=== PATIENT | female | born 1940 | race Caucasian/White ===

== ENCOUNTER 2016-11-18 10:38 | Inpatient (IN) | payer MEDICARE, BC ==
[2016-11-18] VITALS (8 sets, daily range): BP systolic 74–145; BP diastolic 49–74; PULSE 85–165; RESP 18–20; TEMP 97.5–98.4; O2SAT 94–100
[~2016-11-18 10:38] MED LIST: ATEN-102 PO
[2016-11-18] MEDS ORDERED: OXYC1TAB36 PO (10:52)
[2016-11-18] MEDS ORDERED: SODIUM CHLOR 0.9% 1000 ML INJ 1,000 ML IV ONE ×2 (11:15→13:45)
[2016-11-18] MEDS ORDERED: DILTIAZEM HCL 25 MG/5 ML VIAL IV ONE (11:15)
[2016-11-18] MEDS ORDERED: ONDANSETRON HCL 4 MG/2 ML VIAL IVP ONE (11:15)
--- NOTE | 2016-11-18 11:20 | PD ---
HPI Chief Complaint: General Weakness Time Seen by Provider: 10:55 Travel History International Travel<30 days: No Contact w/Intl Traveler<30days: No Traveled to known affect area: No History of Present Illness HPI The patient was seen and examined in the presence of the nurse. This patient went for her dose of chemotherapy and was found to be hypotensive and tachycardic. She had a presyncopal episode. She denies history of cardiac disease. She did have some low-grade chest pain in the center and right side of her chest. 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 SHe is getting chemotherapy now. She is a full code patient. Symptoms are severe. No alleviating factors. Duration 2 hours. No fever or productive cough. PFSH Past Medical History Cancer: Yes (LUNG CANCER WITH METS?) Cardiovascular Problems: Yes (HTN) Chemotherapy: Yes Diabetes: Yes (DIET CONTROLLED ) Patient Takes Glucophage: No Endocrine: Yes Gastrointestinal Disorders: Yes (OCCASIONAL HEARTBURN) Genitourinary: No Hepatitis: No Hiatal Hernia: No Hypertension: Yes Immune Disorder: No Musculoskeletal: Yes (DISCOMFORT LEFT SHOULDER, LEFT HIP(BONE METS)) Neurologic: No Psychiatric: No Reproductive: No Respiratory: Yes (LUNG CA) Radiation Therapy: No Past Surgical History AICD: No Appendectomy: Yes Body Medical Devices: LEFT SHOULDER- TITANIUM Cardiac Surgery: No Ear Surgery: No Endocrine Surgery: No Eye Surgery: Yes (RIGHT CATARACT SURGERY) Genitourinary Surgery: No Gynecologic Surgery: Yes (HYSTERECTOMY) Hysterectomy: Yes Joint Replacement: No Neurologic Surgery: No Oral Surgery: Yes (TONSILLECTOMY/ADENOIDECTOMY) Pacemaker: No Thoracic Surgery: No Tonsillectomy: Yes Other Surgery: Yes Social History Alcohol Use: Yes (wine ) Tobacco Use: No Substance Use: No Allergies-Medications (Allergen,Severity, Reaction): Coded Allergies: Benadryl (Verified Allergy, Severe, SHAKING/JUMPY, 11/18/16) Iodinated Contrast Media (Verified Allergy, Severe, HIVES, 11/18/16) RADIOACTIVE DYE Darvon (Verified Adverse Reaction, Severe, AGITATED, 11/18/16) Demerol (Verified Adverse Reaction, Severe, AGITATED, 11/18/16) Reported Meds & Prescriptions Reported Meds & Active Scripts Active Reported Oxycodone-Acetaminophen 10-325 mg Tab 1 Tab PO Q6H PRN Review of Systems General / Constitutional: No: Fever Eyes: No: Visual changes HENT: Positive: Lightheadedness, No: Headaches Cardiovascular: Positive: Chest Pain or Discomfort, Tachycardia Respiratory: No: Shortness of Breath Gastrointestinal: Positive: Nausea, Constipation, No: Abdominal Pain Genitourinary: No: Dysuria Musculoskeletal: No: Pain Skin: No Rash Neurologic: Positive: Weakness, Dizziness Psychiatric: No: Depression Endocrine: No: Polydipsia Hematologic/Lymphatic: No: Easy Bruising Physical Exam Narrative GENERAL: Well-nourished, well-developed patient with lightheadedness and tachycardia and hypotension. SKIN: Warm and dry. HEAD: Atraumatic. Normocephalic. EYES: Pupils equal and round. No scleral icterus. No injection or drainage. ENT: No nasal bleeding or discharge. Mucous membranes pink and moist. NECK: Trachea midline. No JVD. CARDIOVASCULAR: Appears to be Regular rate and rhythm but it is so fast it's difficult to say. No murmur appreciated. RESPIRATORY: No accessory muscle use. Clear to auscultation. Breath sounds equal bilaterally. GASTROINTESTINAL: Abdomen soft, non-tender, nondistended. Hepatic and splenic margins not palpable. MUSCULOSKELETAL: No obvious deformities. No clubbing. No cyanosis. No edema. NEUROLOGICAL: Awake and alert. No obvious cranial nerve deficits. Motor grossly within normal limits. Normal speech. PSYCHIATRIC: Appropriate mood and affect; insight and judgment normal. Data Data Last Documented VS Vital Signs Date Time Temp Pulse Resp B/P Pulse Ox O2 Delivery O2 Flow Rate FiO2 11/18/16 12:57 112 20 127/63 11/18/16 12:03 94 11/18/16 10:47 98.4 Orders Ondansetron Inj (Zofran Inj) (11/18/16 11:15) Sodium Chlor 0.9% 1000 Ml Inj (Ns 1000 M (11/18/16 11:15) Iv Access Insert/Monitor (11/18/16 11:10) Diltiazem Inj (Cardizem Inj) (11/18/16 11:15) Thyroid Stimulating Hormone (11/18/16 11:12) Basic Metabolic Panel (Bmp) (11/18/16 11:12) Dredge Pipeman / Telemetry ANNIKA.Q8H (11/18/16 11:12) Chest, Single Ap (11/18/16 ) Ckmb (Isoenzyme) Profile (11/18/16 11:12) Troponin I (11/18/16 11:12) Acetamin-Hydrocod 325-5 Mg (Dwight 5-325 (11/18/16 13:00) Admit Order (Ed Use Only) (11/18/16 13:35) Labs Laboratory Tests Test 11/18/16 11:15 Sodium Level 137 MEQ/L Potassium Level 4.2 MEQ/L Chloride Level 100 MEQ/L Carbon Dioxide Level 26.2 MEQ/L Anion Gap 11 MEQ/L Blood Urea Nitrogen 15 MG/DL Creatinine 1.10 MG/DL Estimat Glomerular Filtration 48 ML/MIN Rate Random Glucose 345 MG/DL Calcium Level 8.6 MG/DL Total Creatine Kinase 30 U/L Troponin I LESS THAN 0.02 NG/ML Thyroid Stimulating Hormone 1.800 uIU/ML 3rd Gen [facility] [place] Medical Decision Making Medical Screen Exam Complete: Yes Emergency Medical Condition: Yes Medical Record Reviewed: Yes Differential Diagnosis A. fib with RVR, SVT, dehydration Narrative Course I have reviewed the patient's electronic medical record. Reviewed her oncologist note from November 08, 2016 detailing her history of cancer and chemotherapy Her port is accessed Additional IV placed Patient is critically ill with tachycardia and hypotension. Initial heart rate 160-170 and initial blood pressure 75/49 I reviewed her EKG. It seems regular but it is so fast that started to be certain. There are no P waves in front of the QRS complexes. I suspect this is most likely A. fib with RVR, alternatively could be SVT QRS is narrow complex Extended cardiac monitoring confirms rapid tachycardia I gave her IV Zofran and 1 L normal saline IV bolus After liter bolus her blood pressure recheck was 146/73 with a heart rate of 160 I gave her 15 mg IV Cardizem CBC reveals white count 7.7 with hemoglobin of 10 and platelets of 132,000 Metabolic profile is normal TSH is normal CK is normal Troponin is normal Coagulation studies are normal Recheck after Cardizem reveals her heart rate is 114 and clearly sinus rhythm with P waves in front of QRS which is a definite change. Blood pressure 134 systolic remains okay at this point I gave her second liter normal saline IV She is euvolemic Blood pressure has remained stable and she is in a sinus rhythm Stable for admit to regular floor I believe she had new onset A. fib with RVR causing hypotension and chest symptomatology but no objective evidence of ACS Discussed with Dr. Mcgill who will admit Critical Care Narrative Aggregate critical care time was 40 minutes. Time to perform other separately billable procedures was not included in the critical care time. My time did not include minutes spent treating any other patients simultaneously or on activities that did not directly contribute to the patient's treatment. The services I provided to this patient were to treat and/or prevent clinically significant deterioration that could result in: Cardiac arrhythmia, cardiopulmonary arrest, cardiogenic shock I provided critical care services requiring my management, as noted below: Chart data review, documentation time, medication orders and management, vital sign assessments/reviewing monitor data, ordering and reviewing lab tests, ordering and interpreting/reviewing x-rays and diagnostic studies, care of the patient and discussion of the patient with the admitting physicians. Diagnosis Primary Impression: Atrial fibrillation with RVR Additional Impressions: Pre-syncope Hypotensive episode Admitting Information Admitting Physician Requests: AdmKelechi Hogan MD Nov 18, 2016 11:20
[2016-11-18 11:37] LABS: CHLORIDE 100 MEQ/L (98-107); POTASSIUM 4.2 MEQ/L (3.5-5.1); SODIUM (NA) 137 MEQ/L (136-145)
[2016-11-18 11:41] LABS: ANION GAP 11 MEQ/L (5-15); BICARBONATE 26.2 MEQ/L (21.0-32.0)
[2016-11-18 11:42] LABS: BLOOD UREA NITROGEN 15 MG/DL (7-18)
[2016-11-18 11:45] LABS: GLOMERULAR FILTRATION RATE 48 ML/MIN (>89)
[2016-11-18 11:50] LABS: CREATINE KINASE 30 U/L (26-192)
--- NOTE | 2016-11-18 12:21 | RADHPO ---
EXAM DATE/TIME: 11/18/2016 11:35 [facility] COMPARISON: CHEST EXPIRATION ONLY, April 18, 2016, 14:50. INDICATIONS : Chest pain. MEDICAL HISTORY : Diabetes mellitus type II. Carcinoma, lung. SURGICAL HISTORY : lung bx; port placement ENCOUNTER: Initial ACUITY: 1 day PAIN SCORE: 3/10 LOCATION: Bilateral upper chest FINDINGS: A single view of the chest demonstrates a well-circumscribed masslike lesion along the left heart bor josh which appears distinct from the heart itself. No effusions. Right chest is clear. Right IJ Infuse -a-Port catheter with the tip projecting over the central venous system. Heart size is normal. Degene rative spurring of the dorsal spine. Sideplate and osseous screws secure an old left humeral fracture deformity. CONCLUSION: 1. Large, 8.6 x 5.7 cm well-circumscribed masslike lesion in the left perihilar distribution. 2. Right lung is clear 3. Right IJ central venous catheter with the tip projecting over the central venous system.. John Alonzo MD on November 18, 2016 at 12:15 Board Certified Radiologist. This report was verified electronically.
[2016-11-18] MEDS ORDERED: ACETAMINOPHEN/HYDROcodone 325 MG/5 MG TAB PO ONE (13:00)
[2016-11-18] MEDS ORDERED: D5-1/2 NS + KCL 20 MEQ INJ 1,000 ML IV SCH (14:02)
[2016-11-18] MEDS ORDERED: SENNOSIDES 8.6 MG TAB PO PRN (14:15)
[2016-11-18] MEDS ORDERED: ACETAMINOPHEN 325 MG TAB PO PRN (14:15)
[2016-11-18] MEDS ORDERED: ONDANSETRON HCL 4 MG/2 ML VIAL IVP PRN (14:15)
[2016-11-18] MEDS ORDERED: NALOXONE HCL 0.4 MG/ML AMP IV PRN (14:15)
[2016-11-18] MEDS ORDERED: SODIUM CHLORIDE 0.9% FLUSH 5 ML FLUSH FLUSH PRN (14:15)
[2016-11-18 14:22] LABS: AUTOMATED NEUTROPHIL # 6.2 TH/MM3 (1.8-7.7); BASOPHIL # 0.1 TH/MM3 (0-0.2); BASOPHIL % 1.4 % (0.0-2.0); EOSINOPHIL % 0.1 % (0.0-4.0); HEMATOCRIT 34.1 % (35.0-46.0); HEMO FLAGS DIFF FINAL; LYMPH % 11.9 % (9.0-44.0); MEAN CELL VOLUME 80.9 FL (80.0-100.0); MEAN CORPUSCULAR HEMOGLOBIN 25.4 PG (27.0-34.0); MEAN CORPUSCULAR HGB CONC 31.4 % (32.0-36.0); MONO % 12.5 % (0.0-8.0); NEUT % 74.1 % (16.0-70.0); PLATELET COUNT 170 TH/MM3 (150-450); RED BLOOD COUNT 4.21 MIL/MM3 (4.00-5.30); RED CELL DISTRIBUTION WIDTH 20.1 % (11.6-17.2); WHITE BLOOD COUNT 8.3 TH/MM3 (4.0-11.0)
[2016-11-18] MEDS ORDERED: Infusaport/Implanted VAD PRN NS Lock Flush IVF (19:30)
--- NOTE | 2016-11-18 19:51 | RADHPO ---
EXAM DATE/TIME: 11/18/2016 19:40 [facility] COMPARISON: CHEST SINGLE AP, November 18, 2016, 11:35. INDICATIONS : Abdominal pain. MEDICAL HISTORY : Carcinoma, lung. SURGICAL HISTORY : Hysterectomy. ENCOUNTER: Initial ACUITY: 1 month PAIN SCORE: 7/10 LOCATION: Bilateral abdomen FINDINGS: Supine and upright views of the abdomen were performed. The abdominal bowel gas pattern is normal. T here is a moderate amount of stool throughout the colon. No air fluid levels are seen. No definite c alcifications are seen overlying the kidneys.. No evidence of free intraperitoneal gas. There appears to be an infiltrate and/or mass in the left midlung. This has been previously described. The osseous structures demonstrate degenerative type changes.. CONCLUSION: Benign abdomen with a moderate amount of stool in the colon. Hal Lyons MD on November 18, 2016 at 19:48 Board Certified Radiologist. This report was verified electronically.
[2016-11-18] MEDS: SODIUM CHLORIDE 0.9% FLUSH 5 ML FLUSH FLUSH SCH (20:55)
[2016-11-18] MEDS: 1/2 NS + KCL 20 MEQ INJ 1,000 ML IV SCH (20:55)
[2016-11-18] MEDS ORDERED: ATENOLOL 25 MG TAB PO SCH (21:00)
[2016-11-18 21:29] LABS: HEMOGLOBIN A1a 1.4 %; HEMOGLOBIN A1b 0.9 %; HEMOGLOBIN Ao 81.3 %; HEMOGLOBIN F 2.2 %; HEMOGLOBIN LA1C 3.5 %; HEMOGLOBIN P3 4.4 %
[2016-11-19] VITALS: BP 156/83; PULSE 85; RESP 18; TEMP 96.7; O2SAT 96
[2016-11-19 04:00] VITALS: BP 156/83; PULSE 87; RESP 18; TEMP 97.7; O2SAT 96
[2016-11-19] MEDS: 1/2 NS + KCL 20 MEQ INJ 1,000 ML IV SCH (04:45)
[2016-11-19] MEDS: SODIUM CHLORIDE 0.9% FLUSH 5 ML FLUSH FLUSH SCH (07:20)
--- NOTE | 2016-11-19 07:42 | MH ---
cc: MARIA EUGEINA ABDI M.D., SANDRA L. M.D. DATE OF ADMISSION 11/18/2016 CHIEF COMPLAINT Near syncope, significant weakness ADMITTING DIAGNOSIS Atrial fibrillation with rapid ventricular response versus SVT, hypotension with lung cancer. HISTORY OF PRESENT ILLNESS Ms. Huang is a 76-year-old white female well-known to me from the office with a recent history of lung cancer treated by Dr. Abdi. She had finished five cycles of chemotherapy at a reduced dose due to significant thrombocytopenia requiring transfusion. Her course had just been changed to a new medication that she last received about three weeks ago. She notes that it is a series of days of infusions that normally would be done every two weeks, but she was given more time due to toxicities. She was supposed to start that treatment today and when she went in for her therapy she had arrived into the exam room and felt as though she was going to pass out. She was able to get seated, but felt very nauseous and sweaty. She was brought over to [facility] and found to have a heart rate running in 160's with a very low blood pressure. She has never had such a thing happen before. She denies feeling any palpitations or chest discomfort during that time. She notes she is feeling better overall, but still weak and a little bit whoozy. PAST MEDICAL HISTORY Significant for: 1. Metastatic small cell lung cancer that was initially diagnosed as a 15 cm mass in the left lung involving the mediastinum, also involving the right lung and multiple bony mets to the spine and the pelvis. 2. Type 2 diabetes for which she had been off of medications due to significant weight loss. 3. Hypertension also off medications with her weight loss. 4. Hemochromatosis 5. History of tobacco use, quit with the diagnosis of her lung Cancer. 6. Chronic kidney disease 7. Thrombocytopenia 8. Neutropenia with her chemotherapy 9. Constipation PAST SURGICAL HISTORY 1. Partial hysterectomy 2. Left rotator cuff repair 3. Tonsillectomy age 18 4. Appendectomy SOCIAL HISTORY She is . She is not currently employed. She has a high school education. She has two to three drinks per day, but less since starting her chemotherapy. she had been a current every day smoker of a half pack per day for more than 50 years until she quit in 2015 with a diagnosis of her lung cancer. MEDICATIONS 1. Oxycodone APAP 10/325 mg t.i.d. p.r.n. pain. 2. She has been off of Atenolol and Lisinopril with the start of her chemotherapy as her blood pressures had reduced. 3. She had taken Linzess for constipation, but has not been using that recently 4. Chemotherapy per Dr. Abdi. ALLERGIES IV CONTRAST CAUSED HIVES AND QUESTIONABLE SEIZURE. DEMEROL CAUSED SHAKING AND CONFUSION. FAMILY HISTORY She has a brother who due to exposure to Agent [place]. She had another brother who of a drowning at a young age. She has two other brothers who are alive and healthy, an adopted daughter who is healthy, a son also adopted who is healthy. Her father with psychiatric issues, also had prostate cancer and Parkinson's. Mom also had some psychiatric issues and may have had Parkinson's IMMUNIZATIONS She had Prevnar October 2015. She normally otherwise does not do vaccinations. OTHER PHYSICIANS Dr. Abdi, oncology Dr. Deras, Orthopedics REVIEW OF SYSTEMS She denies any chest discomfort, but notes some right upper back discomfort. No cough or sputum production. Shortness of breath with activity about the house. She is generally minimally active during the day. She notes some abdominal distension and no bowel movement for the past eight days per husbands report. She really is uncertain as to the last time she went. She states she is passing gas and feels some nauseous. Has had some dry heaves over the past three or four days, but no actual vomiting. No blood in the stool previously. No vomiting blood. She has had a significant weight loss and continues to lose weight, but is unable to quantify for me at this point. She had no lower extremity edema. No pain into her calves or swelling. No other skin lesions or rashes. She has had no vaginal discharge or irritation. No dysuria or hematuria. She denies any dizziness with movement of her head. She is just overall feeling weak. She denies any chest discomfort throughout this time. She notes some generalized bone pain that she states is usually controlled with the oxycodone. She normally only takes two to three oxycodone per day. Her is somewhat discouraging of her use of the oxycodone. The remainder of her review of systems is negative. OBJECTIVE On admission to the emergency room, she had a heart rate of 168, temperature of 98.4, respiratory rate 20, blood pressure of 74/49, pulse ox was 100%, not listed as to whether she was on oxygen supplementation at that time. Her heart rate now is running in the mid 90s mostly regular with occasional premature beats. Blood pressure in the 130's/70's, O2 sat is 98% on room air. GENERAL: In general, she is a well-developed white female balding dominique hair speaking without difficulty and sitting up in the bed in a good mood, and usually talkative. HEAD, EYES, EARS, NOSE, AND THROAT: Pupils are equal and reactive to light. Oropharynx is somewhat dry. Fair dentition. NECK: Supple without lymphadenopathy. No supraclavicular adenopathy. CARDIOVASCULAR: Mostly regular. Occasional premature beats and a 1/6 systolic ejection murmur rate running in the 90s. LUNGS: Show minimal breath sounds audible to left lung. Right lung she feels she has good air movement. No wheezes or rhonchi. ABDOMEN: Soft, minimally distended. She has got normal bowel sounds. No tympany. No pain to palpation. No suprapubic tenderness. EXTREMITIES: She has good range of motion of the legs, 2+ dorsalis pedis pulses. There is no edema. No calf tenderness. Negative Homans' sign. RECTAL: Exam shows no lesions to the anus. She has no stool palpable in the vault and no pain on exam. SKIN: On the right upper chest, she does have a subclavian port in place and she has an antecubital IV in her left arm neither with any signs of erythema or swelling. NEUROLOGIC EXAMINATION: She has no nystagmus noted with extraocular movements. Cranial nerves II-XII are grossly intact. She has a full range of motion of the arms and legs and is able to move well in the bed with intact strength. I did not get up to walker at this point. I do not have orthostatic vitals on her. Telemetry shows sinus rhythm with occasional episodes of tachycardia with sinus irregularity. There is no obvious atrial fibrillation noted on the farm adviser. EKG from admission showed a regular tachycardia with an incomplete right bundle branch block and nonspecific septal ST changes. LABORATORY DATA White count was 8.30, hemoglobin 10.7, platelets of 170 with relatively normal differential. Basic metabolic panel with a GFR of 48, random glucose of 345. She has a hemoglobin A1c of 6, troponin of less than 0.02. CPK was 30. TSH was 1.8. Chest x-ray shows a large 8.6 x 5.7 cm well circumscribed mass the left chest wall, right lung was clear. She did have the central line noted to her right chest. ASSESSMENT PLAN 1. Presyncope likely secondary to sudden SVT versus possible A. fib with RVR however, given her EKG it does look like this SVT. She did convert with a dose of Cardizem in the emergency department and has been doing well since that time. I will restart her on atenolol 25 mg p.o. q.h.s. she had Previously stopped this several months ago when her blood pressures were running low as she lost weight. She is obviously in need of replacement at this time. We will monitor her telemetry overnight and gradually try to increase her activity tomorrow as tolerated. 2. Constipation. She has been using the oxycodone. She is uncertain as to the last bowel movement. She has no signs of Fecal impaction as her rectal vault is clear. It may just Be that she has minimal p.o. intake and having less bowel movement. We will check an x-rays of her abdomen to evaluate for any signs of small bowel obstruction given some of her nausea and vomiting as of late. She has very minimal findings on exam, regarding this. 3. Non-small cell metastatic lung cancer. She has been treated by Dr. Abdi. She requests a full code status at this point and still wants to have aggressive therapy. She has recently changed her chemotherapy and is concerned about getting started on her next dosing cycle. I advised once we watched her EKG overnight tonight that I will speak with Dr. Abdi in the morning. Likely I would assume that he would restart her therapy starting next Friday so they will have five days consecutively that they can give her medications. She Would like to get back on medicine as possible. 4. Type 2 diabetes. She had been under very good control. Her blood sugars x2 on lab work have been in the 300s. This could be secondary to steroid use that she does get with her Chemotherapy and they were also nonfasting samples. Her hemoglobin A1c is on 6, however, it could be not accurate due to multiple transfusions and anemia with the chemotherapy. We will check her Accu-Chek's q.a.c. while in the hospital and will make any adjustments as needed. MD AI Quinn/STEPHANIE /10:40 PM /7:08 AM
[2016-11-19 08:00] VITALS: BP_SYST 148; BP_SYST 153; BP_SYST 158; BP_DIAS 74; BP_DIAS 79; BP_DIAS 80; PULSE 92; RESP 18; TEMP 97.6; O2SAT 94
[2016-11-19] MEDS ORDERED: LACTULOSE SYRUP 20 GM/30 ML CUP PO SCH ×2 (09:15→16:00)
[2016-11-19] MEDS: oxyCODONE/ACETAMINOPHEN 10 MG/325 MG TAB PO PRN ×2 (09:47→14:38)
--- NOTE | 2016-11-19 10:37 | EKG ---
Date Performed: 11/18/2016 Time Performed: 10:49:06 PTAGE: 76 years EKG: supraventricular tachycardia Right axis deviation Incomplete RBBB RVH with secondary repola rization abnormality Inferior and ant/septal ST-T changes may be due to hypertrophy and/or ischemia A bnormal ECG PREVIOUS TRACING : 04/05/2016 11.59 DOCTOR: Bud Dietrich Interpretating Date/Time 11/19/2016 10:37:14
[2016-11-19 12:00] VITALS: BP 161/72; PULSE 87; RESP 18; TEMP 97.2; O2SAT 98
[2016-11-19] MEDS ORDERED: ONDA4TAB7 SL (12:14)
[2016-11-19] MEDS ORDERED: LACT10SO PO (12:14)
[2016-11-19] MEDS ORDERED: ATEN25TA PO (12:14)
--- NOTE | 2016-11-19 12:24 | HHI.DS ---
Discharge Summary Admission Date Nov 18, 2016 at 13:35 Discharge Date: Nov 19, 2016 Admitting Diagnosis SVT, hypotension (1) SVT (supraventricular tachycardia) Diagnosis: Principal Plan: She converted with cardizem in the ED. The EKGs that I see do not look like afib (there are P waves) but were fast and sometimes irregular. She is doing well in sinus rhythm at this time with rate control on atenolol 25mg per day. continue (2) Hypotensive episode Diagnosis: Principal Plan: resolved after HR reduced from 168 to less than 100. Better with IVF and negative orthostatics. (3) Pre-syncope Diagnosis: Principal Plan: resolved. Related to elevated HR> (4) Small cell carcinoma Diagnosis: Secondary Plan: I spoke with Dr. Abdi (oncology) this AM and updated him on the events. She was to restart a 5 day chemo regimen yesterday. He will defer that to next Friday. Advised pt to call his office to reschedule appointment. She notes significant toxicity to the chemo and some hesitation with continuing yet wants to be aggressive with treatment. We discussed options for comfort care but she isn't ready yet to consider taht. (5) Constipation Diagnosis: Secondary Plan: I have given her lactulose and discussed dosing. She is concerned about risks of diarrhea. How to adjust dosing discussed with her today. She isn't eating much. (6) Nausea alone Diagnosis: Secondary Plan: meds given. likely combo of chemotherapy, cancer and constipation. Xray negative for bowel obstruction. Brief History 76 yo WF with near syncopal episode at oncology when going for chemo. Transferred to the hospital and found SVT in the 160s with hypotension. CBC/BMP: 11/18/16 1116 11/18/16 1115 Significant Findings Laboratory Tests Test 11/18/16 11/18/16 11:15 11:16 Creatinine 1.10 MG/DL (0.50-1.00) Estimat Glomerular Filtration 48 ML/MIN (>89) Rate Random Glucose 345 MG/DL (74-106) Troponin I LESS THAN 0.02 NG/ML (0.02-0.05) Hemoglobin 10.7 GM/DL (11.6-15.3) Hematocrit 34.1 % (35.0-46.0) Mean Corpuscular Hemoglobin 25.4 PG (27.0-34.0) Mean Corpuscular Hemoglobin 31.4 % Concent (32.0-36.0) Red Cell Distribution Width 20.1 % (11.6-17.2) Neutrophils (%) (Auto) 74.1 % (16.0-70.0) Monocytes (%) (Auto) 12.5 % (0.0-8.0) Monocytes # (Auto) 1.0 TH/MM3 (0-0.9) PE at Discharge Gen: balding WF, no distress, speaking rapidly, good mood CV: RRR, no tachycardia, rate 80s. Lungs: no BS to the left lung, good air movement on the right Ext: no edema, no calf tenderness Hospital Course She did well with conversion wtih cardizem and restarting atenolol. Will discharge home on the atenolol. Pt Condition on Discharge: Stable Discharge Disposition: Discharge Home Discharge Instructions DIET: Follow Instructions for: Diabetic Diet Activities you can perform: Regular-No Restrictions Other Activity Instructions: as tolerated with her walker Kyara Mcgill MD Nov 19, 2016 12:24
== END 2016-11-19 15:36 | disposition home or self-care (01) | DRG 315 ==
LOC: PHED 10:38 → PHEDA 13:35 → PH3B 15:30
PROVIDERS: ADMIT Family Medicine; ATTEND Family Medicine
DX: I95.9 Hypotension, unspecified (principal); I47.1 Supraventricular tachycardia; C79.51 Secondary malignant neoplasm of bone; C34.90 Malignant neoplasm of unspecified part of unspecified bronchus or lung; R55 Syncope and collapse; Z92.21 Personal history of antineoplastic chemotherapy; K59.00 Constipation, unspecified; R11.0 Nausea; E11.9 Type 2 diabetes mellitus without complications; Z87.891 Personal history of nicotine dependence; I12.9 Hypertensive chronic kidney disease with stage 1 through stage 4 chronic kidney disease, or unspecified chronic kidney disease; N18.9 Chronic kidney disease, unspecified
CPT/HCPCS: 36591; 71010; 74020; 80048; 82550; 82948; 83036; 84443; 84484; 85025; 93005; 96361; 96374; 96375; 96523; J1642; J2405; J3480; J7030

== ENCOUNTER 2016-12-23 11:12 | Inpatient (IN) | payer MEDICARE, BC ==
[~2016-12-23] VITALS: Ht 167.6 cm; Wt 62.3 kg
[2016-12-23] VITALS (15 sets, daily range): BP systolic 91–155; BP diastolic 54–72; PULSE 90–162; RESP 14–23; TEMP 98.3–98.6; O2SAT 97–100
[~2016-12-23 11:12] MED LIST changes: -ATEN-102 PO; +ATEN25TA PO; +LACT10SO PO; +ONDA4TAB7 SL; +OXYC1TAB36 PO
[2016-12-23] MEDS ORDERED: DILTIAZEM HCL 25 MG/5 ML VIAL IV ONE (11:45)
[2016-12-23] MEDS ORDERED: SODIUM CHLOR 0.9% 1000 ML INJ 1,000 ML IV ONE ×2 (11:45→12:45)
[2016-12-23 12:12] LABS: BASOPHIL # 0.2 TH/MM3 (0-0.2); BASOPHIL % 1.1 % (0.0-2.0); LYMPH % 6.6 % (9.0-44.0); LYMPHOCYTE # 1.1 TH/MM3 (1.0-4.8); MEAN CELL VOLUME 87.5 FL (80.0-100.0); MEAN CORPUSCULAR HEMOGLOBIN 28.9 PG (27.0-34.0); MONO % 8.1 % (0.0-8.0); NEUT % 84.2 % (16.0-70.0); PLATELET COUNT 122 TH/MM3 (150-450); RED BLOOD COUNT 2.16 MIL/MM3 (4.00-5.30); RED CELL DISTRIBUTION WIDTH 23.5 % (11.6-17.2); WHITE BLOOD COUNT 16.7 TH/MM3 (4.0-11.0)
[2016-12-23] MEDS ORDERED: MORPHINE SULFATE 4 MG/ML INJ IV PUSH ONE (12:15)
[2016-12-23 12:16] LABS: HEMO FLAGS DIFF FINAL
[2016-12-23 12:18] LABS: HEMATOCRIT 18.9 % (35.0-46.0)
[2016-12-23 12:19] LABS: CHLORIDE 104 MEQ/L (98-107); POTASSIUM 3.8 MEQ/L (3.5-5.1); SODIUM (NA) 137 MEQ/L (136-145)
[2016-12-23 12:22] LABS: ANION GAP 6 MEQ/L (5-15); BICARBONATE 26.8 MEQ/L (21.0-32.0); BLOOD UREA NITROGEN 11 MG/DL (7-18); MAGNESIUM 2.1 MG/DL (1.5-2.5)
[2016-12-23 12:23] LABS: APTT (PATIENT) 25.3 SEC (24.3-30.1); PROTHROMBIN TIME - PATIENT 10.7 SEC (9.8-11.6)
[2016-12-23 12:25] LABS: GLOMERULAR FILTRATION RATE 70 ML/MIN (>89)
[2016-12-23 12:33] LABS: CREATINE KINASE 54 U/L (26-192)
--- NOTE | 2016-12-23 12:34 | RADHPO ---
EXAM DATE/TIME: 12/23/2016 12:23 [facility] COMPARISON: CHEST SINGLE AP, November 18, 2016, 11:35. INDICATIONS : Chest discomfort; high heart rate. MEDICAL HISTORY : Hypertension. Diabetes mellitus type II. Afib. Bone cancer. Single cell lung cancer. SURGICAL HISTORY : Infusaport. ENCOUNTER: Initial ACUITY: 1 day PAIN SCORE: 1/10 LOCATION: Bilateral chest FINDINGS: A single view of the chest demonstrates masslike consolidation in the left midlung. Density in the ri ght upper lobe overlying the right lower scapula is seen. Right sided marbin catheter unchanged. Heart borderline enlarged. Osseous structures are intact. CONCLUSION: Stable chest including masslike consolidation in the left perihilar region. Luciano Wing MD on December 23, 2016 at 12:30 Board Certified Radiologist. This report was verified electronically.
[2016-12-23] MEDS ORDERED: PIPERACIL-TAZO 3.375 GM PREMIX 50 ML IV ONE (12:45)
[2016-12-23] MEDS ORDERED: VANCOMYCIN INJ 1,000 MG in SODIUM CHLOR 0.9% 250 ML INJ 250 ML IV ONE (12:45)
[2016-12-23] MEDS ORDERED: SODIUM CHLOR 0.9% 250 ML INJ 250 ML IV ONE (12:45)
--- NOTE | 2016-12-23 12:51 | PD ---
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 Pt states her oxycodone is not helping. She follows with Dr. Abdi (oncology) and last saw him 12/17/16. Pt has had bone pain due to bone metastasis. Pt was found to be in SVT/Aflutter at 157bpm. Pt had similar presentation on 11/18/16 and was given 15mg IV cardizem. Pt has not been eating very well and has been constipated. Denies any fever, sob, n/v, abdominal pain, focal weakness or numbness. PFSH Past Medical History Hx Anticoagulant Therapy: No Arthritis: Yes Heart Rhythm Problems: Yes (W/ THIS ADMISSION ) Cancer: Yes (STAGE 4 BONE CA, SINGLE CELL LUNG CA ) Cardiovascular Problems: Yes Chemotherapy: Yes Cerebrovascular Accident: No Diabetes: Yes (TYPE II CONTROLLED BY DIET) Patient Takes Glucophage: No Endocrine: Yes Gastrointestinal Disorders: Yes (OCCASIONAL HEARTBURN) Genitourinary: No Hepatitis: No Hiatal Hernia: No Hypertension: Yes Immune Disorder: No Implanted Vascular Access Dvce: Yes Musculoskeletal: Yes (bone ca ) Neurologic: No Psychiatric: No Reproductive: Yes (5 miscarriages no live births ) Respiratory: No Radiation Therapy: No Tetanus Vaccination: Unknown Influenza Vaccination: No Past Surgical History Abdominal Surgery: Yes (appendectomy ) AICD: No Appendectomy: Yes Body Medical Devices: LEFT SHOULDER- TITANIUM Cardiac Surgery: Yes (port placement ) Ear Surgery: No Endocrine Surgery: No Eye Surgery: Yes (catarct/lens replacement Right eye ) Genitourinary Surgery: No Gynecologic Surgery: Yes (hysterectomy) Hysterectomy: Yes Joint Replacement: No Neurologic Surgery: No Oral Surgery: Yes (tonsils, adnoids ) Pacemaker: No Thoracic Surgery: Yes (port on right jug. ) Tonsillectomy: Yes Other Surgery: Yes Social History Alcohol Use: Yes (wine ) Tobacco Use: No Substance Use: Yes (vicodin-over 13 yrs ago ) Allergies-Medications (Allergen,Severity, Reaction): Coded Allergies: Benadryl (Verified Allergy, Severe, SHAKING/JUMPY, 12/23/16) Iodinated Contrast Media (Verified Allergy, Severe, HIVES, 12/23/16) RADIOACTIVE DYE Darvon (Verified Adverse Reaction, Severe, AGITATED, 12/23/16) Demerol (Verified Adverse Reaction, Severe, AGITATED, 12/23/16) Reported Meds & Prescriptions Reported Meds & Active Scripts Active Ondansetron Odt 4 Mg Tab 4 Mg SL Q6HR PRN Lactulose Liq (Lactulose) 10 Gm/15 Ml Soln 30 Ml PO BID Atenolol 25 Mg Tab 25 Mg PO HS Reported Oxycodone-Acetaminophen 10-325 mg Tab 1 Tab PO Q6H PRN Review of Systems Except as stated in HPI: all other systems reviewed are Neg Physical Exam Narrative GENERAL: 76yo F in moderate distress. SKIN: Focused skin assessment warm/dry. HEAD: Atraumatic. Normocephalic. EYES: Pupils equal and round. No scleral icterus. No injection or drainage. ENT: No nasal bleeding or discharge. Mucous membranes pink and moist. NECK: Trachea midline. No JVD. CARDIOVASCULAR: Regular rate and rhythm. No murmur appreciated. RESPIRATORY: No accessory muscle use. Clear to auscultation. Breath sounds equal bilaterally. GASTROINTESTINAL: Abdomen soft, non-tender, nondistended. Hepatic and splenic margins not palpable. MUSCULOSKELETAL: No obvious deformities. No clubbing. No cyanosis. No edema. NEUROLOGICAL: Awake and alert. No obvious cranial nerve deficits. Motor grossly within normal limits. Normal speech. PSYCHIATRIC: Appropriate mood and affect; insight and judgment normal. Data Data Last Documented VS Vital Signs Date Time Temp Pulse Resp B/P Pulse Ox O2 Delivery O2 Flow Rate FiO2 12/23/16 13:00 100 16 133/59 98 Room Air 12/23/16 11:30 98.6 Orders Diltiazem Inj (Cardizem Inj) (12/23/16 11:45) Sodium Chlor 0.9% 1000 Ml Inj (Ns 1000 M (12/23/16 11:45) Complete Blood Count With Diff (12/23/16 11:47) Basic Metabolic Panel (Bmp) (12/23/16 11:47) Troponin I (12/23/16 11:47) Ckmb (Isoenzyme) Profile (12/23/16 11:47) Prothrombin Time / Inr (Pt) (12/23/16 11:47) Act Partial Throm Time (Ptt) (12/23/16 11:47) Magnesium (Mg) (12/23/16 11:47) Chest, Single Ap (12/23/16 ) Morphine Inj (Morphine Inj) (12/23/16 12:15) Blood Culture (12/23/16 12:36) Lactic Acid Sepsis Protocol (12/23/16 12:36) Type And Screen (12/23/16 12:36) Sodium Chlor 0.9% 1000 Ml Inj (Ns 1000 M (12/23/16 12:45) Vancomycin Inj (Vancomycin Inj) (12/23/16 12:45) Piperacil-Tazo 3.375 Gm Premix (Zosyn 3. (12/23/16 12:45) Red Blood Cells (Rbc) (12/23/16 12:36) Blood Product Administration .UPON TRANSFUSION (12/23/16 12:36) Sodium Chlor 0.9% 250 Ml Inj (Ns 250 Ml (12/23/16 12:45) Urinalysis - C+S If Indicated (12/23/16 12:51) Pantoprazole Inj (Protonix Inj) (12/23/16 13:15) Pantoprazole Inj (Protonix Inj) (12/23/16 13:15) Consult Medical Oncology (12/23/16 ) Admit Order (Ed Use Only) (12/23/16 13:25) Labs Laboratory Tests Test 12/23/16 12/23/16 11:54 13:00 White Blood Count 16.7 TH/MM3 Red Blood Count 2.16 MIL/MM3 Hemoglobin 6.3 GM/DL Hematocrit 18.9 % Mean Corpuscular Volume 87.5 FL Mean Corpuscular Hemoglobin 28.9 PG Mean Corpuscular Hemoglobin 33.0 % Concent Red Cell Distribution Width 23.5 % Platelet Count 122 TH/MM3 Mean Platelet Volume 9.2 FL Neutrophils (%) (Auto) 84.2 % Lymphocytes (%) (Auto) 6.6 % Monocytes (%) (Auto) 8.1 % Eosinophils (%) (Auto) 0.0 % Basophils (%) (Auto) 1.1 % Neutrophils # (Auto) 14.0 TH/MM3 Lymphocytes # (Auto) 1.1 TH/MM3 Monocytes # (Auto) 1.4 TH/MM3 Eosinophils # (Auto) 0.0 TH/MM3 Basophils # (Auto) 0.2 TH/MM3 CBC Comment DIFF FINAL Differential Comment Prothrombin Time 10.7 SEC Prothromb Time International 1.0 RATIO Ratio Activated Partial 25.3 SEC Thromboplast Time Sodium Level 137 MEQ/L Potassium Level 3.8 MEQ/L Chloride Level 104 MEQ/L Carbon Dioxide Level 26.8 MEQ/L Anion Gap 6 MEQ/L Blood Urea Nitrogen 11 MG/DL Creatinine 0.80 MG/DL Estimat Glomerular Filtration 70 ML/MIN Rate Random Glucose 230 MG/DL Calcium Level 7.8 MG/DL Magnesium Level 2.1 MG/DL Total Creatine Kinase 54 U/L Troponin I LESS THAN 0.02 NG/ML Lactic Acid Level 1.0 mmol/L Blood Type B POSITIVE Antibody Screen NEGATIVE Crossmatch Leukocyte-Reduced Red Blood Cells Blood Bank Comment MDM Medical Decision Making Medical Screen Exam Complete: Yes Emergency Medical Condition: Yes Interpretation(s) EKG: SVT at 157bpm. Incomplete RBBB. EKG#2: Sinus tachycardia at 103bpm. Incomplete RBBB. Differential Diagnosis Sepsis vs. aflutter RVR vs. SVT vs. GI bleed vs. ACS Narrative Course 76yo F with metastatic lung cancer here with worsening bone pain and now chest pain. Pt found to be in SVT/aflutter with rate of 157 and regular rhythm. Pt had similar episode last month. Repeat BP before cardizem showed systolic in the 120s. Pt given cardizem 15mg IV and repeat EKG showed sinus tachycardia at 103bpm. Pt also given 1 liter of NS IVF. Labs reviewed, leukocytosis at 16.7. H/H 6.3/18.9 which is lower than his baseline of hemoglobin in the 8.0. Glucose 230. Troponin negative. Pt empirically given vancomycin and zosyn. Hemaprompt positive. Pt given protonix bolus and place on protonix drip. GI consult placed. 2 units of PRBC ordered and pt consented to blood transfusion. CXR stable including masslike consolidation in left perihilar region. Discussed with Dr. Abdi and agreed with transfusion and will see as a consult. Discussed with Dr. Mcgill and accepted to her service. Critical Care Narrative Aggregate critical care time was 50 minutes. Time to perform other separately billable procedures was not included in the critical care time. My time did not include minutes spent treating any other patients simultaneously or on activities that did not directly contribute to the patient's treatment. The services I provided to this patient were to treat and/or prevent clinically significant deterioration that could result in: cardiovascular collapse or . I provided critical care services requiring my management, as noted below: Chart data review, documentation time, medication orders and management, vital sign assessments/reviewing monitor data, ordering and reviewing lab tests, ordering and interpreting/reviewing x-rays and diagnostic studies, care of the patient and discussion of the patient with the admitting physicians. Diagnosis Primary Impression: Sepsis Qualified Code: A41.9 - Sepsis, due to unspecified organism Additional Impression: GI bleed Qualified Code: K92.2 - Gastrointestinal hemorrhage, unspecified gastrointestinal hemorrhage type Admitting Information Admitting Physician Requests: Dang García DO Dec 23, 2016 12:50
[2016-12-23] MEDS ORDERED: PANTOPRAZOLE INJ 80 MG in SODIUM CHLORIDE 0.9% INJ 35 ML IV ONE (13:15)
--- NOTE | 2016-12-23 13:38 | HHI.PR ---
Addendum to Inpatient Note Addendum Reason: Additional Documentation Additional Information Discussed with Dr. Styles. I'll see patient this afternoon. Orders entered into the computer. Blood transfusion in process. Pt has desired aggressive treatment of lung cancer despite having failed her chemotherapies. She was on a break of chemo with Dr. Abdi due to side effects (anemia, thrombocytopenia, etc). Kyara Kearns MD Dec 23, 2016 13:38
[2016-12-23] MEDS ORDERED: oxyCODONE/ACETAMINOPHEN 10 MG/325 MG TAB PO PRN (13:45)
[2016-12-23] MEDS ORDERED: NALOXONE HCL 0.4 MG/ML AMP IV PRN (13:45)
[2016-12-23] MEDS ORDERED: ONDANSETRON ODT 4 MG TAB SL PRN (13:45)
[2016-12-23] MEDS ORDERED: SODIUM CHLORIDE 0.9% FLUSH 10 ML FLUSH IV FLUSH PRN (13:45)
[2016-12-23] MEDS: PANTOPRAZOLE INJ 80 MG in SODIUM CHLORIDE 0.9% INJ 100 ML IV SCH ×3 (14:53→20:20)
[2016-12-23] MEDS ORDERED: METHADONE HCL 10 MG TAB PO ONE (17:30)
[2016-12-23] MEDS ORDERED: FUROSEMIDE 20 MG/2 ML VIAL IV PUSH PRN (18:00)
--- NOTE | 2016-12-23 18:12 | HHI.PR ---
Addendum to Inpatient Note Addendum Reason: Additional Documentation Additional Information Pt seen and note dictated. I cancelled the GI consult as we are not going to proceed with upper and lower endoscopy at this time given her metastatic lung cancer dx, chemotherapy and transfusion dependence due to chemo. Her stools are light brown. will treat symptomatically with protonix and carafate. she hasn't been taking any GI prophylactic meds. Will get pain control, transfusion , recheck CBC in the AM. Kyara Kearns MD Dec 23, 2016 18:12
--- NOTE | 2016-12-23 19:24 | MH ---
cc: RANDY WILKES M.D. DATE OF ADMISSION 12/23/2016 CHIEF COMPLAINT Elevated heart rate, weakness. ADMISSION DIAGNOSES 1. SVT. 2. Severe anemia. 3. Metastatic lung cancer. HISTORY OF PRESENT ILLNESS Ms. Huang is a 76-year-old white female well-known to me from the office with a history of lung cancer metastatic to the bone that is being treated by Dr. Abdi and oncology. She has been doing chemotherapy but had to reduce the dose due to significant thrombocytopenia requiring transfusion. She had changed to a different chemotherapy about a month or so ago but also has not been tolerating that. She states that she had her last chemotherapy about two or three weeks ago. She had a blood and a platelet transfusion on December 05 and was feeling a little bit better since that time until about the past two to three days. She also states that since her last hospitalization with me in October for SVT, she had been taking the atenolol daily, but ran out of it and was awaiting for it from her mail-order pharmacy for at least the past week. She also states that she did not see the need to take as her blood pressures have been under good control, so she has not been taking it for awhile but could not define awhile. Dr. Abdi had spoken with her recently about palliative care and Hospice therapy rather than proceeding with further chemotherapy as he was limited in his other options for control as she has not been tolerant of two different chemotherapy regimens at this point. The patient states that she still wants to be full code until she has her PET scan that is scheduled for December 30. She was to determine whether there has been any progression of disease, whether there has been any improvement at all with the chemotherapy that she has had prior to making a decision. She feels that she is not quite ready to and has goals of wanting to be able to get out of the house without pain. PAST MEDICAL HISTORY 1. Metastatic small cell lung cancer initially diagnosed with a 15 cm mass in the left lung involving the mediastinum with bony mets to the spine and the pelvis. 2. Type 2 diabetes for which she has been off of medications due to significant weight loss. 3. Hypertension. Also off medications until recently with the atenolol for the SVT. 4. SVT. 5. Hemochromatosis. History tobacco use, quit with the diagnosis of the lung cancer last year. 6. Chronic kidney disease. 7. Thrombocytopenia and neutropenia with chemotherapy. 8. Constipation. PAST SURGICAL HISTORY 1. Partial hysterectomy. 2. Left rotator cuff repair. 3. Tonsillectomy age 18. 4. Appendectomy. SOCIAL HISTORY She is . She has a high school education. She denies any recent alcohol use since starting her chemotherapy. She had been a current everyday smoker of half pack per day for more than 50 years until she quit in 2016. MEDICATIONS 1. Oxycodone / Apap 10/325 mg every 4 hours p.r.n. pain. 2. Atenolol 25 mg per day off of it at least for the past week. 3. She has been taking medications for constipation as needed. She states her last bowel movement was about a week ago and was light brown. 4. Chemotherapy per Dr. Abdi, last given 2-3 weeks ago per her report. ALLERGIES IV CONTRAST CAUSED HIVES AND QUESTIONABLE SEIZURE. DEMEROL CAUSED SHAKING AND CONFUSION. FAMILY HISTORY Brother due to exposure of agent orange. Another brother drowning at a young age. She is two other brothers who are alive and healthy. An adopted daughter and adopted son who are healthy. Dad with psychiatric issues, prostate cancer and Parkinson's. Mom had psychiatric issues and may have had Parkinson's. IMMUNIZATIONS She had Prevnar October 2015. Otherwise she declines vaccines. OTHER PHYSICIAN Dr. Abdi of oncologist. Dr. Deras, orthopedics. REVIEW OF SYSTEMS She feels as though she has had further weight loss. She has no vision changes. No sore throat. No neck discomfort. She has had no shortness of breath. Chest, just felt pounding today with elevated heart rate but6 denies any actual chest discomfort. She states that it is feeling better at this point. She notes her stomach feels like she has been eating rocks. A general discomfort to the upper abdomen. She states that she has an appetite but she gets food she just does not feel that she can eat it. She has not actually had any choking or sticking sensation, just feeling like she cannot get it in her mouth. She has had some vomiting and nausea. Denies any hemoptysis. No hematemesis. She denies having any blood in her stools and states her stools when she has had bowel movements is a light yellow to currie color but she does have chronic constipation only going to the bathroom when she takes a lactulose but then that causes her diarrhea. Last bowel movement about 6 days ago, that was apparently profuse with the use of the lactulose. She has no lower extremity edema. No changes to her skin. Overall weak. She has significant back pain and the oxycodone only last about two or three hours and then she is miserable again. She is asking for something that is more long-acting. She would like to be able to be more active. She states just trying to get into the shower a few days ago was very painful for her and she could hardly move and made her nauseated and nearly throw up. OBJECTIVE VITAL SIGNS: On admission to the emergency department today she had a heart rate of 162, blood pressure 91/55, O2 sat 100% on room air. Afebrile at 98.6. Heart rate has now come down into the 90s and is regular. Her blood pressure is up actually into the 150s over 70s. O2 saturation again 100% on room air. GENERAL: In general she is a well-developed white female, pale but in no acute distress. Able to speak to me in full sentences without difficulty. She is balding. HEENT: Pupils are equal, reactive. Nose, no discharge. Oropharynx was benign without any evidence of thrush. NECK: Supple without lymphadenopathy. No supraclavicular adenopathy. CARDIOVASCULAR: Mildly tachycardiac in the 90s, but not irregular. She does have a little bit of gallop. 1/6 systolic ejection murmur at the left sternal border. LUNGS: Are clear bilaterally but diminished at the bases. No wheezing. No rhonchi. ABDOMEN: Her abdomen is soft. She has bowel sounds. There is no distension. She does not appear to be tender to palpation on exam. EXTREMITIES: Her extremities show no edema. She has got 2+ dorsalis pedis pulses. Good range of motion of all extremities. NEUROLOGIC: She is awake and oriented x3. She is aware of her disease process. She does verbalize that Dr. Abdi does not have great options for her however, she feels that she has survived her diagnosis for at least 6 months more than predicted and is not quite ready to . Otherwise as noted above. ASSESSMENT/PLAN 1. SVT. She did have IV Cardizem in the emergency room and is doing better at this time. Likely the SVT is secondary to having stopped the atenolol in the past week. We will restart the atenolol. She seemed to do well with that previously. Also likely stimulated by the by the anemia. 2. Anemia with a hemoglobin of 6.3. She is pending 2 units of blood transfusion. She is on her first transfusion just started at this point. We will give her 20 mg of Lasix IV in between her units and continue to monitor. She has been somewhat transfusion dependent with her chemotherapy and metastatic lung cancer. She did have a guaiac-positive stool in the emergency room, but her stool is light brown. She has minimal symptoms. We will go ahead and treat her with Protonix and Carafate. We did discuss pros, cons of upper and lower endoscopy. At her current condition I would discourage that at this point with her minimal symptomatology. We will work with the transfusions and make a plan of care from there. I have cancelled the GI consultation at this time due to this fact. 3. Constipation. Likely due to her medications. She had been on Amitiza in the past but stopped it as she felt that it gave her too much loose stools. We are trying to adjust with the lactulose and we will adjust that again today. 4. Non small cell metastatic lung cancer. She has been seeing Dr. Abdi who has encouraged her to consider Hospice therapy. She is not really convinced that she is ready for that at this point. As noted above she would like to wait until she sees the PET scan on December 30 before she makes a decision regarding hospice care versus further chemotherapy. Her has brought in the do not resuscitate papers to sign, however, she states that she is not ready to sign find those and she prefers a full code at this standpoint. 5. Type 2 diabetes. She has been under very good control. Her hemoglobin A1c in the past month at a good level. I do not see need for medications at this point. Given her diagnosis of the metastatic lung cancer, I had placed he5r on a regular diet. 6. Elevated white count. She has no fever. There are no other signs or symptoms of infection at this point. She did get a dose of vancomycin and antibiotics in the emergency department. We will continue to monitor overnight and recheck her labs the morning to see if she does need further antibiotic therapy. I do not see a source that we are treating at this time. MD AI Quinn/KK /6:02 PM /6:38 PM
[2016-12-23] MEDS: LACTULOSE SYRUP 20 GM/30 ML CUP PO SCH (20:18)
[2016-12-23] MEDS: SUCRALFATE 1 GM TAB PO SCH (20:18)
[2016-12-23] MEDS: METHADONE HCL 10 MG TAB PO SCH (20:19)
[2016-12-23] MEDS: SODIUM CHLORIDE 0.9% FLUSH 10 ML FLUSH IV FLUSH SCH (20:21)
[2016-12-23 20:29] LABS: BLOOD, URINE NEG (NEG); GLUCOSE,URINE NEG (NEG); KETONE, URINE NEG (NEG); NITRITE,URINE NEG (NEG); PH, URINE 5.5 (5.0-8.5)
[2016-12-23] MEDS ORDERED: ATENOLOL 25 MG TAB PO SCH (21:00)
[2016-12-23 21:13] LABS: URINE COLOR YELLOW (YELLW/STRAW)
[2016-12-23 21:14] LABS: BACTERIA, URINE OCC /hpf; MUCUS URINE RARE /lpf (OCC)
[2016-12-23 21:15] LABS: COMMENT (UR) CULTURE INDICATED; CULTURE IF INDICATED CULTURE INDICATED
[2016-12-23] MEDS: MORPHINE SULFATE 4 MG/ML INJ IV PUSH PRN (21:20)
[2016-12-24] VITALS (14 sets, daily range): BP systolic 112–164; BP diastolic 63–82; PULSE 82–125; RESP 13–43; TEMP 98.2–98.4; O2SAT 94–99
--- NOTE | 2016-12-24 02:30 | RADHPO ---
EXAM DATE/TIME: 12/24/2016 00:49 [facility] COMPARISON: CHEST SINGLE AP, December 23, 2016, 12:23. INDICATIONS : Back pain for one week. History of bone metastasis. RADIATION DOSE: 26.56 CTDIvol (mGy) ; Combined studies - Thoracic Spine/Lumbar Spine MEDICAL HISTORY : Carcinoma, lung. Metastatic, bone. Diabetes. SURGICAL HISTORY : Appendectomy. Hysterectomy. ENCOUNTER: Initial ACUITY: 1 week PAIN SCALE: 8/10 LOCATION: Thoracic TECHNIQUE: Volumetric scanning of the thoracic spine was performed. Multiplanar reconstructions in the sagittal , coronal and oblique axial planes were performed. Using automated exposure control and adjustment o f the mA and/or kV according to patient size, radiation dose was kept as low as reasonably achievable to obtain optimal diagnostic quality images. FINDINGS: There is evidence of diffuse bony metastatic disease with multiple sclerotic lesions throughout all t he bony structures. The thoracic vertebral bodies are grossly intact with no pathologic compression f ractures at this time. No spondylolisthesis. T1-T2: Normal. T2-T3: The thecal sac has a normal diameter. No evidence of disc bulge or protrusion. T3-T4: The thecal sac has a normal diameter. No evidence of disc bulge or protrusion. T4-T5: The thecal sac has a normal diameter. No evidence of disc bulge or protrusion. T5-T6: The thecal sac has a normal diameter. No evidence of disc bulge or protrusion. T6-T7: The thecal sac has a normal diameter. No evidence of disc bulge or protrusion. T7-T8: The thecal sac has a normal diameter. No evidence of disc bulge or protrusion. There is a tiny osteo phyte in the left paracentral location. T8-T9: The thecal sac has a normal diameter. No evidence of disc bulge or protrusion. T9-T10: The thecal sac has a normal diameter. No evidence of disc bulge or protrusion. T10-T11: The thecal sac has a normal diameter. No evidence of disc bulge or protrusion. T11-T12: The thecal sac has a normal diameter. No evidence of disc bulge or protrusion. T12-L1: The thecal sac has a normal diameter. No evidence of disc bulge or protrusion. CONCLUSION: 1. Diffuse bony metastatic disease with multiple sclerotic metastases throughout the bony structures. 2. No pathologic compression fractures. Hal Lyons MD on December 24, 2016 at 2:16 Board Certified Radiologist. This report was verified electronically.
--- NOTE | 2016-12-24 02:37 | RADHPO ---
EXAM DATE/TIME: 12/24/2016 00:49 [place] COMPARISON: No previous studies available for comparison. INDICATIONS : Back pain for one week. History of bone metastasis. RADIATION DOSE: 26.56 CTDIvol (mGy) ; Combined studies - Thoracic Spine/Lumbar Spine MEDICAL HISTORY : Carcinoma, lung. Metastatic, bone. Diabetes. SURGICAL HISTORY : Appendectomy. Hysterectomy. ENCOUNTER: Initial ACUITY: 1 week PAIN SCALE: 8/10 LOCATION: Lumbar TECHNIQUE: Volumetric scanning of the lumbar spine was performed. Multiplanar reconstructions in the sagittal, coronal and oblique axial planes were performed. Using automated exposure control and adjustment of the mA and/or kV according to patient size, radiation dose was kept as low as reasonably achievable t o obtain optimal diagnostic quality images. FINDINGS: VERTEBRAE: There is diffuse sclerotic bony metastatic disease. There is some mild compression along the superior endplate of L3. This is most likely a pathologic compression fracture. There is disc degeneration wi th disc space narrowing at L5-S1. ALIGNMENT: No evidence of subluxation. T12-L1: The thecal sac has a normal diameter. No evidence of disc bulge or protrusion. The neural foramina are patent bilaterally. L1-L2: The thecal sac has a normal diameter. No evidence of disc bulge or protrusion. There is narrowing of left neural foramina from a large left osteophyte. The right neural foramina is patent. L2-L3: The thecal sac has a normal diameter. No evidence of disc bulge or protrusion. The neural foramina are patent bilaterally. Bilateral facet arthritis. L3-L4: Moderate diffuse broad-based bulging and narrowing of the neural foramina bilaterally. Bilateral face t arthritis and hypertrophy of ligamentum flavum creating moderate spinal canal stenosis. L4-L5: Mild to moderate diffuse broad-based bulging with narrowing of the neural foramina bilaterally. Bilat eral facet arthritis and hypertrophy of ligamenta flava causing some mild to moderate spinal canal st enosis. L5-S1: Diffuse broad-based bulge and narrowing of the neural foramina bilaterally. Bilateral facet arthritis . There is disc degeneration and disc space narrowing. Mild spinal canal stenosis. CONCLUSION: 1. Diffuse sclerotic bony metastatic disease throughout the lumbar spine. 2. Mild pathologic compression fracture along the superior endplate of L3. 3. Moderate diffuse broad-based bulging at L3-4 and L4-5 causing focal spinal canal stenosis. 4. There is broad-based bulging at L5-S1 with mild spinal canal stenosis. 5. There is bilateral facet arthritis at multiple levels. Hal Lyons MD on December 24, 2016 at 2:29 Board Certified Radiologist. This report was verified electronically.
[2016-12-24 04:47] LABS: AUTOMATED NEUTROPHIL # 15.4 TH/MM3 (1.8-7.7); BASOPHIL % 0.1 % (0.0-2.0); HEMATOCRIT 35.1 % (35.0-46.0); LYMPH % 8.6 % (9.0-44.0); LYMPHOCYTE # 1.6 TH/MM3 (1.0-4.8); MEAN CELL VOLUME 88.7 FL (80.0-100.0); MEAN CORPUSCULAR HEMOGLOBIN 29.4 PG (27.0-34.0); MEAN CORPUSCULAR HGB CONC 33.2 % (32.0-36.0); MONO % 7.9 % (0.0-8.0); NEUT % 83.4 % (16.0-70.0); PLATELET COUNT 98 TH/MM3 (150-450); RED BLOOD COUNT 3.96 MIL/MM3 (4.00-5.30); WHITE BLOOD COUNT 18.5 TH/MM3 (4.0-11.0)
[2016-12-24 04:55] LABS: HEMO FLAGS AUTO DIFF
--- NOTE | 2016-12-24 06:30 | MB ---
cc: FOREIGN PAULSON SANDRA L. M.D. CHEW, BOON Y. M.D. DATE OF 1940 DATE OF SERVICE 12/23/[address] Kyara Mcgill CHIEF COMPLAINT Dr. Mcgill requests consultation for Mrs. Huang regarding acute anemia with history of small cell lung cancer. HISTORY OF PRESENT ILLNESS Mrs. Huang is a 76-year-old woman, well-known patient with metastatic small cell lung cancer. She is on second line chemotherapy with topotecan at a significant dose reduction. She has had problems related to cytopenias under the care of Dr. Abdi. She has had repeated transfusions due to anemia. She has had a dose reduction due to her cytopenias. She has had platelet and red blood cell transfusion all of October and into November. Mrs. Huang was last seen by Dr. Abdi on December 12, 2016. They discussed restaging evaluation which was scheduled for December. Dr. Abdi reviewed with Mrs. Huang the palliative nature of the chemotherapy. She was still interested in continuing her aggressive treatment. She has consulted hospice and discussed with them hospice care if her PET scan evaluation was bad. She had company over the weekend. She had a very good distraction. She noticed increasing pain in her upper and lower back. She has had bony metastatic disease and that went into remission as confirmed in her previous CT/PET scan in October 2016. It appears she may have had progression now. She has had worsening pain symptoms. It was so severe that it felt worse than her herpes zoster eruption. It radiated to her front and her lower abdomen. She suspect that the lower abdomen may be due to constipation. She was taking oxycodone without any significant relief. This prompted her to come in through the emergency room to be evaluated. She was seen by Dr. Styles. Laboratory evaluation in the emergency room shows a hemoglobin of 6.3, platelet count at 122. She had an arrhythmia with atrial fibrillation/atrial flutter. She was transferred to the ICU. There was concern about GI bleeding. She had some heme-positive stools. She was started on Protonix and GI consulted. In the meantime she was transfused 2 units of packed red cells. Hematology/Oncology is consulted because of her small cell lung cancer. REVIEW OF SYSTEMS She denies any fevers, chills or night sweats. Her performance status is quite poor. She walks around her apartment with a walker. She spends a lot of time in bed. She denies any overt bleeding. Denies any headaches or vision changes. She has no nausea or vomiting. She is frustrated by the constipation. She has stopped smoking. She denies any cough or respiratory problems. The rest of her review of systems is negative. PAST MEDICAL HISTORY 1. Metastatic small cell lung cancer. 2. Diabetes type 2. 3. Hypertension. 4. Uterine fibroids. PAST SURGICAL HISTORY 1. Breast biopsy. 2. Cataract surgery. 3. Appendectomy. 4. Hysterectomy. ALLERGIES DARVOCET. DEMEROL. CURRENT MEDICATIONS 1. Atenolol. 2. Lactulose. 3. Morphine p.r.n. 4. Zofran p.r.n. 5. Percocet p.r.n. 6. Pantoprazole. SOCIAL HISTORY She drinks occasional wine. Denies any tobacco use. 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 She talked about getting marijuana oil. FAMILY HISTORY Father had prostate cancer and Parkinson's disease. PHYSICAL EXAMINATION VITAL SIGNS: Temperature 98.6, heart rate 94, blood pressure 119/63, saturation 100%. GENERAL: Mrs. Huang is a pale-appearing, 76-year-old woman with alopecia but residual hair present. HEENT: Her pupils are round and reactive to light and accommodation. Conjunctivae pale. Oropharynx is clear. NECK: Supple. LUNGS: Clear anteriorly. CARDIOVASCULAR: Exam reveals a rate-controlled rhythm. ABDOMEN: Benign, soft and nontender. LOWER EXTREMITIES: With no edema. NEUROLOGICAL: Exam is nonfocal. LABORATORY DATA Hemoglobin of 6.3, platelet count 122, BUN of 11, creatinine 0.8, glucose of 230. ASSESSMENT AND PLAN Mrs. Huang is a 76-year-old woman with metastatic small cell lung cancer. She is on second line therapy with topotecan complicated by cytopenias. Lengthy discussion with Mrs. Huang in general terms of treatment for her small cell lung cancer. It appears that her response due to topotecan is waning. Furthermore she has a lot of toxicity. Possible the toxicity outweigh her benefits from the drug. She is pending a CT/PET scan coordinated by Dr. Abdi. At this point she would decide whether she would be willing to accept hospice care. In the meantime she was admitted to the hospital with acute back pain. This is the reason for her coming in. She was also found to have severe anemia. By history there is no overt GI bleeding. I suspect that the anemia is due to the topotecan. She has required transfusions coordinated by Dr. Abdi due to the chemotherapy regimen. We will monitor for any bleeding. She denies any melena or bright red blood per rectum. She has had constipation because of her pain regimen. We discussed long-acting pain medicines. We elected to proceed with methadone. This is a drug that her daughter has explored. She was willing to try it. I will start methadone at 5 mg once daily. We will monitor closely and titrate slowly given its long half-life. In the meantime breakthrough pain medication will be available. CT scan of the thorax and lumbar spine will be performed without contrast. I plan to evaluate for bony metastatic disease. She had previous bony lesions that had resolved after first line therapy. Her last CT/PET scan from October did not show any bony disease. Since there is concern for progression, a CT/PET scan would be revealing as to the nature of her pain. I suspect it is due to progression of her metastatic disease. This may sway her further to consider hospice sooner than after her CT/PET scan is scheduled. Palliative Care will be consulted. We will ask them to assist in managing her pain and bowel regimen. Lactulose was initiated. Her questions were answered to her satisfaction. Foreign Paulson MD RAD/SSB /5:27 PM /6:13 AM
[2016-12-24 07:24] LABS: BANDS 4 % (0-6); CORRECTED NUCLEATED RBC 2 /100 WBC (0-0); METAMYELOCYTES 5 % (0-1); MYELOCYTES 2 % (0-0); NEUTROPHIL # MANUAL DIFF 16.1 TH/MM3 (1.8-7.7); PLATELET ESTIMATE SMEAR LOW (NORMAL); PLATELET MORPHOLOGY NORMAL (NORMAL); POLYS (SEG NEUTROPHILS) 76 % (16-70); SCAN/DIFF FINAL DIFF MANUAL; WBC DIFF SAMPLE 100
[2016-12-24] MEDS ORDERED: CHLORHEXIDINE GLUCONATE 2 % 1 PACK (2 CLOTHS)(extra cloths) TOPICAL PRN (08:15)
[2016-12-24] MEDS: SUCRALFATE 1 GM TAB PO SCH ×2 (08:50→11:32)
[2016-12-24] MEDS: METHADONE HCL 10 MG TAB PO SCH ×3 (08:52→10:52)
[2016-12-24] MEDS: LACTULOSE SYRUP 20 GM/30 ML CUP PO SCH (08:52)
[2016-12-24] MEDS: SODIUM CHLORIDE 0.9% FLUSH 10 ML FLUSH IV FLUSH SCH (08:52)
[2016-12-24] MEDS: PANTOPRAZOLE INJ 80 MG in SODIUM CHLORIDE 0.9% INJ 100 ML IV SCH ×2 (09:14→11:32)
[2016-12-24] MEDS: MORPHINE SULFATE 4 MG/ML INJ IV PUSH PRN ×2 (11:41→11:46)
[2016-12-24] MEDS ORDERED: DOLO10TA PO (12:19)
[2016-12-24] MEDS ORDERED: CARA1TAB6 PO (12:19)
--- NOTE | 2016-12-24 12:23 | HHI.DS ---
Discharge Summary Admission Date Dec 23, 2016 at 13:26 Discharge Date: Dec 24, 2016 Admitting Diagnosis Sepsis, GI bleed (1) Antineoplastic chemotherapy induced anemia Diagnosis: Principal Plan: up to 11 after transfusion. doing well. She would like to continue to get transfusions as needed outpatient at this time. No sign of distinct GI bleed. Treating conservatively with PPI and carafate. (2) Small cell carcinoma Diagnosis: Secondary Plan: She has now failed 2 chemotherapy options. She has progressive metastatic disease to the spine. Poor performance status and toxicities to chemo and no longer a candidate for active therapy. She is willing to accept hospice although she states she isn't ready yet to , yet wants comfort care ( in her mind she would have a break from chemo, get stronger and be able to resume chemo again, yet we discussed the unlikeliness of that scenerio today). WE discussed having hospice in to discuss options and trying to get her home today with comfort care. She doesn't want to be in the care center or NH. She does want pain control and discussed methadone BID with oxycodone or morphine during the day prn. I spoke with Xochitl with hospice and she notes pt was agreeable to a few days at the care center to get pain controlled but would like to speak with oncologist again prior to discharge . Pt is not yet willing to sign a DNR order. (3) SVT (supraventricular tachycardia) Diagnosis: Principal Plan: She was off the atenolol for several days. restart and continue. Try to keep up the hemoglobin Consultants Dr. Lane (oncology), [facility]. Brief History came to hospital for worsening back pain, found to have severe anemia and SVT CBC/BMP: 12/24/16 0400 12/23/16 1154 Significant Findings Laboratory Tests Test 12/23/16 12/23/16 12/24/16 11:54 20:00 04:00 White Blood Count 16.7 TH/MM3 18.5 TH/MM3 (4.0-11.0) (4.0-11.0) Red Blood Count 2.16 MIL/MM3 3.96 MIL/MM3 (4.00-5.30) (4.00-5.30) Hemoglobin 6.3 GM/DL (11.6-15.3) Hematocrit 18.9 % (35.0-46.0) Red Cell Distribution Width 23.5 % 20.0 % (11.6-17.2) (11.6-17.2) Platelet Count 122 TH/MM3 98 TH/MM3 (150-450) (150-450) Neutrophils (%) (Auto) 84.2 % 83.4 % (16.0-70.0) (16.0-70.0) Lymphocytes (%) (Auto) 6.6 % 8.6 % (9.0-44.0) (9.0-44.0) Monocytes (%) (Auto) 8.1 % (0.0-8.0) Neutrophils # (Auto) 14.0 TH/MM3 15.4 TH/MM3 (1.8-7.7) (1.8-7.7) Monocytes # (Auto) 1.4 TH/MM3 1.5 TH/MM3 (0-0.9) (0-0.9) Estimat Glomerular Filtration 70 ML/MIN (>89) Rate Random Glucose 230 MG/DL (74-106) Calcium Level 7.8 MG/DL (8.5-10.1) Troponin I LESS THAN 0.02 NG/ML (0.02-0.05) Urine Leukocyte Esterase TRACE (NEG) Urine WBC 9-14 /hpf (0-5) Urine Squamous Epithelial 6-8 /hpf (0-5) Cells Urine Bacteria OCC /hpf (NONE) Neutrophils % (Manual) 76 % (16-70) Lymphocytes % 7 % (9-44) Neutrophils # (Manual) 16.1 TH/MM3 (1.8-7.7) Metamyelocytes 5 % (0-1) Myelocytes 2 % (0-0) Nucleated Red Blood Cells 2 /100 WBC (0-0) Platelet Estimate LOW (NORMAL) Imaging CT spine with progressive metastatic disease. PE at Discharge Gen: sitting up in bed, good mood, comfortable CV: RRR, rate 90s Lungs: CTA bilaterally, diminished Abd: NT Ext: no edema. able to get to the bedside commode with 1 person assist and back in bed. full ROM of extremities. Hospital Course She received antibiotics in the ED for possible sepsis, however on further eval no s/s of infection. Suspect symptoms all from SVT (off atenolol) and with anemia. Pt Condition on Discharge: Fair Discharge Disposition: Hospice/Med Facility Discharge Instructions DIET: Follow Instructions for: As Tolerated, No Restrictions Activities you can perform: Weight Bearing as Stephy Other Activity Instructions: encourage use of walker/wheelchair for stability Kyara Mcgill MD Dec 24, 2016 12:23
--- NOTE | 2016-12-24 13:03 | EKG ---
Date Performed: 12/23/2016 Time Performed: 12:04:26 PTAGE: 76 years EKG: Sinus tachycardia. Right bundle branch block Rightward axis Abnormal ECG PREVIOUS TRACING : 12/23/2016 11.27 Compared to previous tracing, sinus tachycardia has replace d possible supravenricular tachycardia. DOCTOR: Terence Coreas Interpretating Date/Time 12/24/2016 13:01:49
--- NOTE | 2016-12-24 13:04 | EKG ---
Date Performed: 12/23/2016 Time Performed: 11:27:26 PTAGE: 76 years EKG: Probable supraventricular tachycardia Right axis deviation Incomplete RBBB Abnormal ECG PREVIOUS TRACING : 11/18/2016 10.49 No significant change from previous tracing noted. DOCTOR: Terence Coreas Interpretating Date/Time 12/24/2016 13:03:34
[2016-12-25] MEDS ORDERED: CHLORHEXIDINE GLUCONATE 2 % 1 PACK (2 CLOTHS)(taper/protocol) TOPICAL SCH (04:00)
== END 2016-12-24 15:35 | disposition hospice, inpatient (51) | DRG 812 ==
LOC: PHED 11:12 → PHEDA 13:26 → PHICU 15:55
PROVIDERS: ADMIT Family Medicine; ATTEND Family Medicine
PROC: 30233N1 Transfusion of Nonautologous Red Blood Cells into Peripheral Vein, Percutaneous Approach (ICD-10-PCS; principal; 2016-12-23)
DX: D64.81 Anemia due to antineoplastic chemotherapy (principal); T45.1X5A Adverse effect of antineoplastic and immunosuppressive drugs, initial encounter; C79.51 Secondary malignant neoplasm of bone; D69.59 Other secondary thrombocytopenia; D70.1 Agranulocytosis secondary to cancer chemotherapy; I47.1 Supraventricular tachycardia; E10.9 Type 1 diabetes mellitus without complications; C34.92 Malignant neoplasm of unspecified part of left bronchus or lung; I12.9 Hypertensive chronic kidney disease with stage 1 through stage 4 chronic kidney disease, or unspecified chronic kidney disease; N18.9 Chronic kidney disease, unspecified; E83.119 Hemochromatosis, unspecified; K59.00 Constipation, unspecified; Z87.891 Personal history of nicotine dependence
CPT/HCPCS: 36430; 71010; 72128; 72131; 80048; 81001; 82550; 83605; 83735; 84484; 85007; 85025; 85027; 85610; 85730; 86850; 86900; 86901; 86920; 87040; 87086; 93005; 96361; 96374; 96375; C9113; J1940; J2270; J2543; J3370; J7030; J7050; P9016